=== PATIENT | female | born 1970 | race Caucasian/White ===

== ENCOUNTER 2024-08-13 11:48 | Outpatient (CLI) | payer BC, SELFPAY ==
[2024-08-13 12:29] LABS: HCT 42.7 % (36.0-46.0); HGB 14.3 g/dL (11.2-15.7); MCH 29.5 pg (27.0-33.0); MCHC 33.5 % (32.0-36.0); MCV 88 fL (80-95); MPV 10.4 fL (8.0-11.0); Platelet Count 308 10^3/uL (130-400); RBC 4.85 10^6/uL (3.93-5.22); RDW 12.8 % (11.7-14.6); RDW-SD 41.4 fL; WBC 6.81 10^3/uL (4.4-10.8)
[2024-08-13 13:32] LABS: ALT 21 U/L (14-59); AST 17 U/L (15-37); Albumin 4.6 g/dL (3.4-5.0); Alkaline Phosphatase 101 U/L (46-116); BUN 17 mg/dL (7-18); Bilirubin, Total 0.6 mg/dL (0.2-1.0); CREATININE 0.8 mg/dL (0.55-1.02); Chloride 103 mmol/L (98-107); Glucose 102 mg/dL (74-106); Potassium 3.9 mmol/L (3.5-5.1); Sodium 139 mmol/L (136-145); TSH (W/Ref FT4) 0.58 uIU/mL (0.36-3.74); Total Protein 7.9 g/dL (6.4-8.2)
== END 2024-08-13 11:49 | disposition home or self-care (01) ==
LOC: LBO 11:49
PROVIDERS: PCP Obstetrics & Gynecology; Visit Provider Obstetrics & Gynecology
DX: N95.1 Menopausal and female climacteric states (principal); R53.83 Other fatigue; Z3A.28 28 weeks gestation of pregnancy
CPT/HCPCS: 36415; 80053; 85027; 84443

== ENCOUNTER 2024-09-15 11:59 | Outpatient (REF) | payer BC, SELFPAY | END 2024-09-15 12:00 | disposition home or self-care (01) | LOC: LBN 11:59 | PROVIDERS: Visit Provider Obstetrics & Gynecology | DX: R30.0 Dysuria (principal); Z12.4 Encounter for screening for malignant neoplasm of cervix | CPT/HCPCS: 88142; 88305; 87086; 87624 ==

== ENCOUNTER 2024-09-29 11:38 | Outpatient (REF) | payer BC, SELFPAY | END 2024-09-29 11:39 | disposition home or self-care (01) | LOC: LBN 11:38 | PROVIDERS: Visit Provider Obstetrics & Gynecology | DX: R31.29 Other microscopic hematuria (principal) | CPT/HCPCS: 87086 ==

== ENCOUNTER 2024-10-13 11:42 | Outpatient (REF) | payer BC, SELFPAY ==
[2024-10-13 14:48] LABS: Glucose Negative (Negative)
[2024-10-13 15:03] LABS: C & S Indicated? No; RBC 0-2 HPF (0-2); WBC Negative HPF (0-5)
== END 2024-10-13 11:43 | disposition home or self-care (01) ==
LOC: LBN 11:42
PROVIDERS: Visit Provider Nurse Practitioner Gerontology
DX: R31.29 Other microscopic hematuria (principal); R82.89 Other abnormal findings on cytological and histological examination of urine
CPT/HCPCS: 81003; 81015